=== PATIENT | female | born 1960 | race Caucasian/White ===

== ENCOUNTER 2019-02-20 07:04 | Outpatient (CLI) | payer OTHER, SELFPAY ==
--- NOTE | 2019-02-20 07:44 | CT_ITS ---
WS: [id number] CT scan of the neck. Additional two-dimensional coronal and sagittal reconstruction was performed. 11/2019 Clinical Data: COUGH/ENLARGED LYMPH NODES Comparison: None. DLP: 691.[address] scans at [facility] use at least one of these dose optimization techniques: automat ed exposure control; mA and/or kV adjustment per patient size (includes targeted exams where dose is matched to clinical indication); or iterative reconstruction. Findings: Right side of the neck shows small lymph nodes all of which are less than 1 cm. No left-sided lymphad enopathy is seen. The salivary glands are unremarkable. There is no prevertebral soft tissue swelling . The larynx is symmetric. The right thyroid lobe shows enhancement but the left lobe is absent.. The floor of the mouth and parapharyngeal spaces are normal. The oral cavity is unremarkable. The spheno id, maxillary and ethmoid sinuses are unremarkable. The intraorbital contents are normal. The carotid arteries bifurcate normally with minimal calcification at the origin of the left internal carotid ar mario. The cervical spine is unremarkable. The lung apices show no abnormalities. The portions of the intra cranial circulation which are seen demonstrate no abnormalities. No erosion of the skull or skull bas e is seen. CT/CT neck w con* [id number] Impression: 1. Minimal right lymphadenopathy but no lymph nodes are larger than 1 cm. 2. Minimal calcification at origin of left internal carotid artery. 3. Absent left lobe of thyroid.
[2019-02-20] MEDS: iohexol 300 mg/mL 100 mL Btl IV (08:30)
== END 2019-02-20 07:05 | disposition home or self-care (01) ==
LOC: RT 14:24 → RAD 14:29
PROVIDERS: Family Provider Nurse Practitioner; PCP Nurse Practitioner; Visit Provider Internal Medicine Critical Care Medicine
DX: I65.22 Occlusion and stenosis of left carotid artery (principal); R59.9 Enlarged lymph nodes, unspecified; R05 Cough; E83.52 Hypercalcemia
CPT/HCPCS: 70491; 94010

== ENCOUNTER 2022-08-02 09:56 | Outpatient (CLI) | payer OTHER, SELFPAY ==
--- NOTE | 2022-08-02 10:01 | MM_ITS ---
WS: [id number] BILATERAL SCREENING DIGITAL TOMOSYNTHESIS MAMMOGRAM WITH CAD HISTORY: SCREENING COMPARISON: 03/12/2019 and 10/24/2017 Bilateral CC and MLO views with tomosynthesis and synthetic mammography submitted. Computer aided det ection analyzed. Breast composition: There are scattered areas of fibroglandular density. No suspicious masses, microc alcifications or architectural distortion. Benign calcifications in each breast. MM/[place] [id number] IMPRESSION: BI-RADS: 2-Benign FOLLOW UP: 1 Year Follow-up
== END 2022-08-02 09:57 | disposition home or self-care (01) ==
PROVIDERS: PCP Nurse Practitioner; Visit Provider Nurse Practitioner Family
DX: Z12.31 Encounter for screening mammogram for malignant neoplasm of breast (principal)
CPT/HCPCS: 77063; 77067